=== PATIENT | male | born 2000 | race Caucasian/White ===

== ENCOUNTER 2024-02-08 13:12 | Emergency (ER) | payer BC, SELFPAY ==
[2024-02-08 13:14] VITALS: BP 140/81
[2024-02-08 15:52] LABS: % Basophils 0.4 % (0-2); % Eosinophils 0.5 % (0-6); % Immature Granulocytes 0.2 % (0-0.5); % Lymphocytes 15.6 % (20.5-51.1); % Neutrophils 78.3 % (42.2-75.2); Absolute Lymphocytes 1.3 10^3/uL (1.2-3.4); Absolute Monocytes 0.4 10^3/uL (0.1-0.6); Absolute Neutrophils 6.3 10^3/uL (1.4-6.5); Hematocrit 42.4 % (39.0-52.0); Hemoglobin 14.6 g/dL (13.0-18.0); Mean Corp Hgb Conc. 34.4 g/dL (33.0-37.0); Mean Corpuscular Volume 87.1 fL (80.0-94.0); Mean Platelet Volume 10.9 fL (7.4-10.4); Nucleated Red Blood Cells % 0 % (-); Platelet Count 232 10^3/uL (130-400); Red Blood Cell Count 4.87 10^6/uL (4.70-6.10); Red Cell Dist. Width 14.1 % (11.5-14.5)
[2024-02-08 16:12] LABS: Urine Albumin Negative (Neg - Trace); Urine Bilirubin Negative (Negative); Urine Character Clear (Clear); Urine Color Yellow; Urine Glucose Negative (Negative); Urine Ketone Negative (Negative); Urine Leukocyte Negative (Negative); Urine Nitrite Negative (Negative); Urine Occult Blood Negative (Negative); Urine Urobilinogen Negative (Neg - 1+)
[2024-02-08 16:23] LABS: ALT (SGPT) 13 U/L (0-50); AST (SGOT) 20 U/L (17-59); Albumin 5.3 g/dl (3.5-5.0); Alkaline Phosphatase 78 U/L (38-126); Blood Urea Nitrogen 9 mg/dl (9-20); Calcium 10.5 mg/dl (8.4-10.2); Carbon Dioxide 22 mmol/L (22-30); Chloride 104 mmol/L (98-107); Glucose 105 mg/dl (70-99); Potassium 3.9 mmol/L (3.5-5.1); Sodium 138 mmol/L (135-145); Total Bilirubin 0.9 mg/dl (0.2-1.3); eGFR > 60.00
[2024-02-08 16:45] VITALS: BP 147/66
[2024-02-08 16:46] VITALS: BP 144/77
[2024-02-08 16:48] VITALS: BP 130/72
[2024-02-08 16:50] VITALS: BP 130/72; BP 144/77; BP 147/66; PULSE 100; PULSE 67; PULSE 72
--- NOTE | 2024-02-08 17:08 | ED.GENMED ---
History of Present Illness
General
Chief Complaint: Fainting/Passed Out
Source: patient
Exam Limitations: none
Time Seen by Provider: 02/08/24 14:26
Nursing documentation reviewed up to this point in time: agreed with
Travel History
Have you had any contact with someone who has COVID-19?: No
Do you have any symptoms of coronavirus? Fever > 100 degrees, chills, cough, shortness of breath, sore throat, loss of taste or smell, muscle aches, or headache?: No
History of Present Illness
History of Present Illness:
24-year-old male with remote history of seizures though has not had one in multiple years and this was provoked by benzodiazepine withdrawal, anxiety depression presenting to the emergency department after passing out earlier today. He called out
to his father after urinating father was able to be at the scene at the time of the fall was not unconscious for more than a moment. Also was noted some tingling to the right foot over the past 4 days denies any specific back pain or previous head
injury nausea vomiting or additional neurologic complaints.
Past History
Past History
ED Past Medical History: Seizures and Psychiatric (Anxiety, Depression)
ED Past Surgical History: None
Social History
Tobacco: Former smoker
Alcohol: Occasional
Personal: Single
Living: with family
Review of Systems
Review of Systems
Allergies reviewed?: Yes
All Other Systems: ROS reviewed and negative except as documented in HPI and ROS
Phy Exam
Physical Exam
Physical Exam:
GENERAL: Alert , in no apparent distress
EYE: pupils equal and reactive
NECK: Supple, no significant adenopathy.
ENT: o/p clr, mmm.
CARDIAC: Regular rate and rhythm .
LUNGS: Clear breath sounds bilaterally, no acute respiratory distress, no wheezes/rales/rhonchi
ABDOMEN: Soft, without focal tenderness, no r/g, no cvat
NEUROLOGICAL: Alert and oriented, no focal neuro deficits full range of motion strength the lower extremities does have intact sensation to the lower extremities bilaterally. Does claim that some tingling when palpating the right foot
SKIN: Warm and dry, skin intact.
MUSCULOSKELETAL: No edema, well perfused.
PSYCH: Normal and appropriate interaction.
Course
Orders/Labs/Results
Orders:
Orders
02/08/24 13:17
EKG [Electrocardiogram (*1)] Urgent
Reason for Study: Syncope
EKG- Treatment ONCE
02/08/24 15:08
CT Head W/o Iv Contrast Urgent
Comment:
Reason For Exam: right foot numbness, syncope, may have hit head
Chest [CR Chest - 2 Views ] Urgent
Comment:
Reason For Exam: syncope right chest pain
02/08/24 15:43
CBC/With Diff [Complete Blood Count/With Diff] Urgent
CMP [Comprehensive Metabolic Panel] Urgent
02/08/24 16:05
Urinalysis Reflex To Culture Urgent
Date Specimen was Collected: 02/08/24
Time Specimen was Collected: 16:04
Abnormal Lab Results
02/08/24
15:43
MPV 10.9 H fL
(7.4-10.4)
Neutrophils % 78.3 H %
(42.2-75.2)
Lymphocytes % 15.6 L %
(20.5-51.1)
Glucose 105 H mg/dl
(70-99)
Calcium 10.5 H mg/dl
(8.4-10.2)
Albumin 5.3 H g/dl
(3.5-5.0)
02/08/24 15:43
02/08/24 15:43
Vital Signs
Initial and Last Documented VS:
Initial Vital Signs
Temp Pulse Resp BP Pulse Ox
98.5 F 77 16 140/81 98
02/08/24 13:14 02/08/24 13:14 02/08/24 13:14 02/08/24 13:14 02/08/24 13:14
Last Documented Vital Signs
Temp Pulse Resp BP Pulse Ox
98.5 F 77 16 130/72 99
02/08/24 13:14 02/08/24 13:14 02/08/24 13:14 02/08/24 16:48 02/08/24 16:46
MDM/Problems Addressed
MDM/Problems Addressed:
24 old male presenting to the emergency department after passing out at home after urinating. He felt lightheaded called out to his father then fell father was at the scene and claims that he was unconscious for no more than the moment. Did have
some right sided arm did. Also was noted some tingling to his right foot over the past 4 days. Upon here vital signs normal patient no distress normal neurologic evaluation labs unremarkable urinalysis normal EKG nonischemic and no signs of
arrhythmia. Asymptomatic throughout ER stay CT scan without emergent findings x-ray normal as well of the chest. Patient peers stable for discharge he was advised for close outpatient follow-up return precautions given.
*Critical Care Note
Total Time (30-74mins, 75-104mins- exclusive of procedures): Not Applicable
ED Attending Note
-
Portions of this chart may have been created with voice recognition software.� Occasional wrong word or��sound alike� substitutions may have occurred due to the inherent limitations of voice recognition software.
Discharge Plan
Departure
Patient Disposition: Home (Routine Discharge)
Date of Disposition: 02/08/24
Time of Disposition: 18:07
Patient with high blood pressure during this ER visit?: No
Condition: Good
Covid-19: Not Applicable
Discharge Problem:
Syncope, Numbness and tingling of foot
Instructions: Syncope (Fainting) (DC)
Prescriptions:
No Action
No Current Medications
0
Referrals:
Edis Chamorro MD [Family Provider] -
Activity Restrictions/Additional Instructions:
You can to the emergency department today with concerns of syncopal episode. Here you to reassuring evaluation. Please follow-up closely with the primary care doctor within 1 week for reassessment. Immediately return for any worsening, new or
concerning symptoms.
Interventions
Interventions:
*Risk Screen - Suicide Last Done: 02/08/24 13:14
*General Assessment Last Done: 02/08/24 13:14
*Neglect/Abuse Screening Last Done: 02/08/24 16:00
ED- Fall Risk Assessment Last Done: 02/08/24 16:00
*ED COVID-19 Vaccine History Last Done: 02/08/24 13:14
ED- Cardiac Assessment Last Done: 02/08/24 16:00
ED- Neurological Assessment Last Done: 02/08/24 16:00
Discharge Date and Time
Print Language: SPANISH
== END 2024-02-08 18:41 | disposition home or self-care (01) ==
LOC: EMR 13:12
PROVIDERS: Physician Assistant; EMERGENCY PHYSICIAN Emergency Medicine; FAMILY PHYSICIAN Family Medicine
DX: R55 Syncope and collapse (principal); R20.0 Anesthesia of skin; R20.2 Paresthesia of skin; F41.9 Anxiety disorder, unspecified; F32.A Depression, unspecified
CPT/HCPCS: 99285; 70450; 71046; 80053; 81003; 85025; 93005

== ENCOUNTER 2024-11-13 17:55 | Emergency (ER) | payer SELFPAY ==
[2024-11-13 17:58] VITALS: BP 132/77
--- NOTE | 2024-11-13 20:11 | ED.GENMED ---
History of Present Illness
General
Chief Complaint: Crisis Evaluation
Source: patient
Exam Limitations: none
Time Seen by Provider: 11/13/24 20:03
History of Present Illness
History of Present Illness:
See MDM
Past History
Past History
ED Past Medical History: Seizures and Psychiatric (Anxiety, Depression)
ED Past Surgical History: None
Social History
Tobacco: Former smoker
Alcohol: Occasional
Personal: Single
Living: with family
Phy Exam
Physical Exam
Physical Exam:
See MDM
Course
Orders/Labs/Results
Orders:
Orders
11/13/24 18:02
Crisis Consult Urgent
Reason for Consult: anger outbursts
Vital Signs
Initial and Last Documented VS:
Initial Vital Signs
Temp Pulse Resp BP Pulse Ox
98.3 F 87 18 132/77 97
11/13/24 17:58 11/13/24 17:58 11/13/24 17:58 11/13/24 17:58 11/13/24 17:58
Last Documented Vital Signs
Temp Pulse Resp BP Pulse Ox
98.3 F 87 18 132/77 97
11/13/24 17:58 11/13/24 17:58 11/13/24 17:58 11/13/24 17:58 11/13/24 17:58
MDM/Problems Addressed
Differential Diagnosis Includes:
HPI and MDM Narrative:
24-year-old male presenting for crisis evaluation. His father convinced him to go to the hospital for evaluation. His father apparently tried to place him on a 302 but it was denied earlier today. When I entered the room, patient already speaking
to crisis. Patient is very calm and cooperative. He has good insight to his mental health. He states the big issue has been his girlfriend living with his parents. He states he was trying to help her but also wanted her to leave the house.
Apparently, she moved out earlier today. Patient has been inpatient before but he states this was several years ago and he 'said stuff that he did not mean'.
Patient admits to recreational marijuana use but does not appear to be clinically intoxicated.
Patient denies any active suicidal or homicidal thoughts. Patient does not want to reenact his 302 situation several years ago. Patient states he does not know if going home would be better or if he wants to sign himself is a 201.
Will have crisis talk about options but he does not appear to be a candidate for 302
Physical exam
General: Well appearing and non-toxic. Sitting in bed comfortably
HEENT: protecting airway
Neck: appears supple
CV: No evidence of cyanosis
Resp: No accessory muscle use
Abd: Non-distended
Extremities: No deformities
Neuro: alert
Psych: Normal affect
Skin: Intact
Problems Addressed including Acute and Chronic Conditions affecting care:
1. Depression
Acuity: acute on chronic
Prognosis: stable
Details: He does not appear to be at self-harm that would require 302. Will have crisis discuss alternative options
Updates
Crisis had a long talk with patient and father at bedside. Crisis indicating that father is very supportive. They feel comfortable going home and crisis will provide outpatient resources
Differential Diagnosis (but not limited to): Depression, anxiety, stress response
Testing considered: UDS but he already acknowledges THC use
Drug therapy (if applicable): OTC meds, please see d/c instruction regarding Rx drugs
Amount and/or Complexity of Data Reviewed
Clinical info obtained from: Patient
External data reviewed: N/A
Labs I independently reviewed (but not limited to): N/A
Radiology: N/A
Pulse Ox: not hypoxic
EKG independently reviewed: N/A
Assistant Hvac Mechanic: N/A
Critical Care: N/A
Risk of Complication:
Social Determinants of health: Good social support
Discussed with other providers: Crisis
Escalation of Care includes Admit/Obs: After being observed in the Emergency Department, pt stable for discharge.
Occasional wrong word or 'sound a like' substitutions may have occurred due to the inherent limitations of voice recognition software. Read the chart carefully and recognize, using context, where substitutions have occurred.
*Critical Care Note
Total Time (30-74mins, 75-104mins- exclusive of procedures): Not Applicable
ED Attending Note
-
Portions of this chart may have been created with voice recognition software.� Occasional wrong word or��sound alike� substitutions may have occurred due to the inherent limitations of voice recognition software.
Discharge Plan
Departure
Patient Disposition: Home (Routine Discharge)
Date of Disposition: 11/13/24
Time of Disposition: 20:51
Patient with high blood pressure during this ER visit?: No
Discharge Problem:
Acute depression
Instructions: Depression, Adult (DC)
Prescriptions:
No Action
No Current Medications
0
Referrals:
NONE,* [Family Provider] -
Activity Restrictions/Additional Instructions:
Please return for any worsening symptoms.
You may return at any time if you have further concerns.
Please follow up with your doctor at the first available appointment, preferably this week.
Please refer to the handouts provided by crisis.
Thank you for choosing [facility].
Interventions
Interventions:
*Risk Screen - Suicide Last Done: 11/13/24 17:58
ED-Psychological Assessment Last Done: 11/13/24 20:30
Discharge Date and Time
Print Language: SPANISH
== END 2024-11-13 21:28 | disposition home or self-care (01) ==
LOC: EMR 17:55
PROVIDERS: EMERGENCY PHYSICIAN Student in an Organized Health Care Education/Training Program
DX: F32.A Depression, unspecified (principal); Z87.891 Personal history of nicotine dependence
CPT/HCPCS: 99283

== ENCOUNTER 2024-11-28 10:15 | Emergency (ER) | payer SELFPAY ==
[2024-11-28 10:18] VITALS: BP 138/97
--- NOTE | 2024-11-28 10:34 | EDRN ---
Pt moved to C1 from triage, all belongs were placed in patient belonging bags and patient changed into paper scrub, father is at bedside with patient. PT reports that father is a strong support person and wants him at bedside. Pt cooperative.
Security provided with facesheet.
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
--- NOTE | 2024-11-28 11:15 | CHAP ---
Emotional and spiritual support provided for Jonathan and his father at bedside. Prayers shared.
[2024-11-28 12:27] LABS: Amphetamines Negative (Negative); Barbiturates Negative (Negative); Benzodiazepines Negative (Negative); Buprenorphine Negative (Negative); Cocaine Negative (Negative); Methadone Negative (Negative); Methamphetamines Negative (Negative); Opiates Negative (Negative)
[2024-11-28 12:28] LABS: Marijuana Positive (Negative); Phencyclidine Negative (Negative); Tricyclic Antidepressants Negative (Negative)
== END 2024-11-28 13:01 | disposition home or self-care (01) ==
LOC: EMR 10:15
PROVIDERS: Physician Assistant Medical; EMERGENCY PHYSICIAN Emergency Medicine
DX: F12.90 Cannabis use, unspecified, uncomplicated (principal); Z87.891 Personal history of nicotine dependence; G40.909 Epilepsy, unspecified, not intractable, without status epilepticus; F41.8 Other specified anxiety disorders
CPT/HCPCS: 99282; 80306